=== PATIENT | female | born 1980 | race Caucasian/White ===

== ENCOUNTER → 2018-07-24 | Outpatient (CLI) | payer MEDICAID ==
[~2018-07-24] MED LIST: ALPR.5T PO; BUTA1TAB46 PO; CATHETER FLUSH 10 ML SYR IV PRN; CITA40TA19 PO; CPR500T PO; HOLD METFORMIN - RECEIVED CONTRAST 20 ML VIAL IV SCH; HYDR-757 PO; IBUP-30 PO; IBUP800T26 PO; IOHEXOL 350 MG/ML 100 ML (OMNIPAQUE 350) VIAL IV ONE; LEVO750T6 PO; METR500T PO; NAPR-243 PO; NITR-65 PO; NS 50 ML (IVPB) BAG IV ONE; ONDAN4ODT PO; SULF-222 PO; TRM50T PO
--- NOTE | 2018-07-24 19:10 | Diagnostic Imaging Report ---
PROCEDURE: CT abdomen and pelvis with contrast. TECHNIQUE: Multiple contiguous axial images were obtained through the abdomen and pelvis after administration of intravenous contrast. Auto Exposure Controls were utilized during the CT exam to meet ALARA standards for radiation dose reduction. DATE: July 24, 2018. COMPARISON: CT chest, abdomen and pelvis, May 26, 2013. INDICATION: 37-year-old female, right upper quadrant abdominal pain for one year. FINDINGS: There is minimal dependent atelectasis in the lower lobes. The heart is not enlarged. There is no identified pericardial effusion. The liver is normal in size and contour. There is an elongated left lobe of the liver which is a normal variant appearance. There is no identified liver lesion. The main, right and left portal veins are patent. The patient is status post cholecystectomy. There is no intrahepatic or extrahepatic bile duct dilation. The main pancreatic duct is not abnormally dilated. Unremarkable appearance of the pancreatic parenchyma. The spleen is normal in size. The adrenal glands are unremarkable. There is a 5 mm low-attenuation right renal lesion on delayed axial image 45, too small to characterize. Urinary collecting systems are not distended. There is no identified renal or ureteral stone. The urinary bladder is grossly unremarkable in appearance. The uterus is not seen and may be surgically absent. There are surgical clips in the right lower quadrant. The appendix is not well seen. There are no secondary findings to suggest acute appendicitis. There is no free intraperitoneal air. There is no drainable fluid collection. There is no free pelvic fluid. There is no identified abnormally enlarged lymph node in the abdomen or pelvis which meets CT size criteria for adenopathy. There is no identified acute bony abnormality. IMPRESSION: CT abdomen and pelvis: No identified acute abnormality in the abdomen or pelvis. Dictated by: Dictated on workstation # [id number]
== END ==
LOC: RAD FS 15:12
PROVIDERS: ATTEND Physician Assistant
DX: R10.11 Right upper quadrant pain (principal); Z90.49 Acquired absence of other specified parts of digestive tract
CPT/HCPCS: 74177

== ENCOUNTER 2018-08-09 13:50 | Emergency (ER) | payer MEDICAID ==
[~2018-08-09] VITALS: Ht 162.6 cm; Wt 68.0 kg
[~2018-08-09 13:50] MED LIST changes: -CATHETER FLUSH 10 ML SYR IV PRN; -HOLD METFORMIN - RECEIVED CONTRAST 20 ML VIAL IV SCH; -IOHEXOL 350 MG/ML 100 ML (OMNIPAQUE 350) VIAL IV ONE; -NS 50 ML (IVPB) BAG IV ONE
--- OUTSIDE RECORDS SUMMARY | 2018-08-09 13:55 | XMS REPORT | Continuity of Care Document ---
Author Author [facility] Organization [facility] Address Unknown Phone Unavailable Care Team Providers Care Supervisor Central Supply Name Role Phone NO, LOCAL PHYSICIAN PP Unavailable Insurance Providers Payer Name Policy Number Subscriber Name Relationship Unknown Moon Buckner Advance Directives Directive Response Recorded Date Advance Directives N 09/21/12 6:09pm Problems No Known Problems or Medical conditions. Social History History Response Recorded Date/Time Alcohol Use Denies Use 09/21/12 6:09pm Recreational Drug Use N 09/21/12 6:09pm Allergies, Adverse Reactions, Alerts Allergen Type Severity Reaction Last Updated acetaminophen Allergy 09/21/12 DEPROVERA Allergy 09/21/12 Medications Medication Dose Units Route Sig Qty Days Ciprofloxacin (Cipro) 1 Tab PO BID 5 Citalopram Hydrobromide (Celexa) 1 Each PO DAILY Alprazolam (Xanax) 1 Tab PO QID PRN Response Recorded Date/Time Status not known Unknown Results No Known Relevant Diagnostic Tests, Laboratory Data and/or Discharge Summary. Encounters Encounter Location Date/Time Registered Emergency Room [facility] 09/21/12 5:49pm
--- OUTSIDE RECORDS SUMMARY | 2018-08-09 13:55 | XMS REPORT ---
Author Author Migration, Doctor Organization [facility] Address Unknown Phone Unavailable Care Team Providers Care Devops Engineer Name Role Phone Migration, Doctor Unavailable Unavailable PROBLEMS Type Condition ICD9-CM Code XMC53-MF Code Onset Dates Condition Status SNOMED Code Problem Special screening for malignant neoplasms, vagina V76.47 Active 583182152 Problem Unspecified breast screening V76.10 Active 552162725 Problem Moderate episode of recurrent major depressive disorder F33.1 Active 526884266 Problem Chronic obstructive pulmonary disease with acute lower respiratory infection J44.0 Active [id number] Problem Screening examination for venereal disease V74.5 Active 185669801 Problem Other abnormal blood chemistry 790.6 Active 072136848 Problem Renal and perinephric abscess 590.2 Active 812316508 Problem Acute pyelonephritis without lesion of renal medullary necrosis 590.10 Active 196377393 ALLERGIES No Information ENCOUNTERS Encounter Location Date Diagnosis [address] [address] Jun, Moderate episode of recurrent major depressive disorder F33.[address] [address] Jun, Right upper quadrant abdominal pain R10.11 [place] [id number] [place] [address] Jun, Moderate episode of recurrent major depressive disorder F33.[address] [address] May, Moderate episode of recurrent major depressive disorder F33.1 ; Acute bronchitis, unspecified J20.9 and Chronic obstructive pulmonary disease with acute lower respiratory infection J44.0 [facility] [address] [id number] [address] Jul, [facility] [address] [id number], [place] [address] Jul, [facility] [place] [facility] [address] [id number] [place] [address] Nov, [facility] [place] [facility] [address] [id number] [place] [address] Nov, [facility] [place] [facility] [address] [id number] [place] [address] Oct, 2013 [facility] [place] [facility] [address] [id number] [place] [address] Oct, 2013 [facility] [place] [facility] [address] [id number] [place] [address] Jan, [facility] [place] [facility] [address] [id number] [place] [address] Jan, [facility] [place] [facility] [address] [id number] [place] [address] Jan, [facility] [place] [facility] [address] [id number] [place] [address] Jan, [facility] [place] [facility] [address] [id number] [place] [address] Jan, [facility] [place] [facility] [address] [id number] [place] [address] Jan, [facility] [place] [facility] [address] [id number] [place] [address] Jan, [facility] [place] [facility] [address] [id number] [place] [address] Jan, [facility] [place] [facility] [address] [id number] [place] [address] Dec, [facility] [place] [facility] [address] [id number] [place] [address] Nov, [facility] [place] [facility] [address] [id number] [place] [address] Nov, [facility] [place] [facility] [address] [id number] [place] [address] Nov, [facility] [address] [facility] [id number] [place] [address] Nov, [facility] [address] [facility] [id number] [place] [address] Oct, IMMUNIZATIONS No Known Immunizations SOCIAL HISTORY Never Assessed REASON FOR VISIT EMR-[facility] PLAN OF CARE VITAL SIGNS MEDICATIONS Medication Instructions Dosage Frequency Start Date End Date Duration Status Flagyl 500 mg 1 tablet by Oral route 2 times per day for 7 days Jan Active Ibuprofen 200 mg Nov, Active RESULTS No Results PROCEDURES No Known procedures INSTRUCTIONS MEDICATIONS ADMINISTERED No Known Medications MEDICAL (GENERAL) HISTORY Type Description Date Medical History Anxiety Medical History Depression Medical History emphysema Medical History COPD Surgical History hysterectomy Surgical History appendectomy Surgical History cholecystectomy Surgical History kidney stones, removed, stents placed & removed Surgical History ectopic Hospitalization History surgeries Hospitalization History kidneys Hospitalization History kidney disease x2 weeks Rhine
--- OUTSIDE RECORDS SUMMARY | 2018-08-09 13:56 | XMS REPORT | Continuity of Care Document ---
Author Author [facility] Organization [facility] Address Unknown Phone Unavailable Care Team Providers Care Plastic Press Molder Name Role Phone NO, LOCAL PHYSICIAN PP Unavailable Insurance Providers Payer Name Policy Number Subscriber Name Relationship Self Pay Peter Buckner 01 Self / Same As Patient Advance Directives Directive Response Recorded Date Advance Directives N 11/26/12 11:45pm Health Care Power of Channeler Outsole N 11/26/12 11:45pm Organ Donor Y 11/26/12 11:45pm Problems No Known Problems or Medical conditions. Family History History Response Recorded Date/Time Hx Family Cancer Y UNCLE-BRAIN, TWO GRANDMOTHERS 11/26/12 11:45pm Hx Family Breast Cancer N 11/26/12 11: 45pm Hx Family Lung Cancer N 11/26/12 11:45pm Hx Family Colorectal Cancer N 11/26/12 11 :45pm Hx Family Cardiac Disorders Y UNCLE--HEART TRANSPLANT 11/26/12 11:45pm Hx Family Stroke N 11/26/12 11:45pm Hx Family Hypertension N 11/26/12 11: 45pm Hx Family Myocardial Infarction N 11:45pm Hx Family Cystic Fibrosis N 11/26/12 11: 45pm Social History History Response Recorded Date/Time Alcohol Use Denies Use 11/26/12 11:45pm Recreational Drug Use Y OCCASSIONAL MARIJUANA 11/26/12 11:45pm Recent Foreign Travel N 11/26/12 11:45pm Recent Infectious Disease Exposure N 11:45pm Hospitalization with Isolation Denies 07/09 2:14pm Sexually Transmitted Disease N 11/26/12 11:45pm HIV/AIDS N 11/26/12 11:45pm Allergies, Adverse Reactions, Alerts Allergen Type Severity Reaction Last Updated acetaminophen Allergy 11/27/12 DEPROVERA Allergy 09/21/12 oxycodone Adverse Reaction Intermediate 11/27/12 Medications Medication Dose Units Route Sig Qty Days Trimethoprim/Sulfamethoxazole (Bactrim Ds) 1 Tab PO BID Ibuprofen (Advil) 800 Mg PO BID PRN Trimethoprim/Sulfamethoxazole (Bactrim Ds) 1 Ea PO BID Metronidazole (Flagyl 500 Mg) 1 Each PO BID 7 Ciprofloxacin (Cipro) 1 Tab PO BID 5 Citalopram Hydrobromide (Celexa) 1 Each PO DAILY Alprazolam (Xanax) 1 Tab PO QID PRN Immunizations Name Given Type Date of Pneumonia Vaccine 11/28/12 H pneumococcal polysaccharide PPV23 11/28/12 A pneumococcal polysaccharide PPV23 11/28/12 A Response Recorded Date/Time Status not known Unknown Results Test Date Result Interp. Ref. Range Alanine Aminotransferase (ALT/SGPT) November 26, 2012 9:20pm 33 U/L N 30-65 Albumin November 26, 2012 9:20pm 3.5 G/DL N 3.4-5.0 Alkaline Phosphatase November 26, 2012 9:20pm 124 U/L N 50-136 Amylase Level November 05, 2012 7:50pm 35 U/ L N 25-115 Aspartate Amino Transf (AST/SGOT) November 26, 2012 9:20pm 29 U/L N 15-37 BUN/Creatinine Ratio November 26, 2012 9:20pm 16 - Band Neutrophils November 26, 2012 9:20pm 1 % - Basophils # (Auto) November 26, 2012 9:20pm 0.0 10^3/uL N 0.0-0.1 Basophils % (Manual) November 26, 2012 9:20pm 0 % - Basophils (%) (Auto) November 26, 2012 9:20pm 0 % N 0-10 Blood Urea Nitrogen November 26, 2012 9:20pm 18 MG/DL N 7-18 Calcium Level November 26, 2012 9:20pm 8.9 MG/DL N 8.5-10.1 Carbon Dioxide Level November 26, 2012 9:20pm 28 MMOL/L N 21-32 Chloride Level November 26, 2012 9:20pm 96 MMOL/L L 101-110 Creatinine November 26, 2012 9:20pm 1.1 MG/ DL N 0.6-1.3 Eosinophils # (Auto) November 26, 2012 9:20pm 0.0 10^3/uL N 0.0-0.3 Eosinophils % (Manual) November 26, 2012 9:20pm 0 % - Eosinophils (%) (Auto) November 26, 2012 9:20pm 0 % N 0-10 Glucose Level November 26, 2012 9:20pm 101 MG/DL N 74-106 Hematocrit November 26, 2012 9:20pm 43 % N 35-52 Hemoglobin November 26, 2012 9:20pm 14.8 G/ DL N 11.5-16.0 Lipase November 05, 2012 7:50pm 127 U/L N 73-393 Lymphocytes # (Auto) November 26, 2012 9:20pm 2.0 X 10^3 N 1.0-4.0 Lymphocytes % (Manual) November 26, 2012 9:20pm 24 % - Lymphocytes (%) (Auto) November 26, 2012 9:20pm 12 % N 12-44 Mean Corpuscular Hemoglobin November 26, 2012 9:20pm 31 PG N 25-34 Mean Corpuscular Hemoglobin Concent November 26, 2012 9:20pm 35 G/DL N 32-36 Mean Corpuscular Volume November 26, 2012 9:20pm 90 FL N 80-99 Mean Platelet Volume November 26, 2012 9:20pm 9.4 FL N 7.4-10.4 Monocytes # (Auto) November 26, 2012 9:20pm 2.0 X 10^3 H 0.0-1.0 Monocytes % (Manual) November 26, 2012 9:20pm 6 % - Monocytes (%) (Auto) November 26, 2012 9:20pm 12 % N 0-12 Neutrophils # (Auto) November 26, 2012 9:20pm 12.2 X 10^3 H 1.8-7.8 Neutrophils % (Manual) November 26, 2012 9:20pm 67 % - Neutrophils (%) (Auto) November 26, 2012 9:20pm 75 % N 42-75 Platelet Count November 26, 2012 9:20pm 187 10^3/uL N 130-400 Potassium Level November 26, 2012 9:20pm 4.1 MMOL/L N 3.6-5.0 Reactive Lymphocytes November 26, 2012 9:20pm 2 % - Red Blood Count November 26, 2012 9:20pm 4.76 10^6/uL N 4.35-5.85 Red Cell Distribution Width November 26, 2012 9:20pm 12.5 % N 10.0-14.5 Sodium Level November 26, 2012 9:20pm 132 MMOL/L L 135-145 Total Bilirubin November 26, 2012 9:20pm 0.4 MG/DL N 0.0-1.0 Total Protein November 26, 2012 9:20pm 8.1 G /DL N 6.4-8.2 Ur Tricyclic Antidepressants Screen November 05, 2012 6:17pm NEGATIVE - Urine Amphetamines Screen November 05, 2012 6:17pm NEGATIVE - Urine Bacteria November 26, 2012 9:02pm LARGE /HPF H - Urine Barbiturates Screen November 05, 2012 6:17pm NEGATIVE - Urine Benzodiazepines Screen November 05, 2012 6:17pm NEGATIVE - Urine Bilirubin November 26, 2012 9:02pm NEGATIVE - Urine Casts November 26, 2012 9:02pm NONE / LPF - Urine Clarity November 26, 2012 9:02pm VERY CLOUDY H - Urine Cocaine Screen November 05, 2012 6:17pm NEGATIVE - Urine Color November 26, 2012 9:02pm EDDIE H - Urine Crystals November 26, 2012 9:02pm NONE /LPF - Urine Culture Indicated November 26, 2012 9:02pm YES - Urine Glucose (UA) November 26, 2012 9:02pm NEGATIVE - Urine Ketones November 26, 2012 9:02pm NEGATIVE - Urine Leukocyte Esterase November 26, 2012 9:02pm 2+ H - Urine Methamphetamines Screen November 05, 2012 6:17pm NEGATIVE - Urine Mucus November 26, 2012 9:02pm NEGATIVE /LPF - Urine Nitrite November 26, 2012 9:02pm POSITIVE H - Urine Opiates Screen November 05, 2012 6:17pm POSITIVE H - Urine Phencyclidine Screen November 05, 2012 6:17pm NEGATIVE - Urine Propoxyphene Screen November 05, 2012 6:17pm NEGATIVE - Urine Protein November 26, 2012 9:02pm 3+ H - Urine RBC November 26, 2012 9:02pm 2-5 /HPF H - Urine Specific [place] November 26, 2012 9:02pm 1.025 H - Urine Squamous Epithelial Cells November 26, 2012 9:02pm 2-5 /HPF - Urine Urobilinogen November 26, 2012 9:02pm 1 MG/DL - Urine WBC November 26, 2012 9:02pm 50-100 / HPF H - Urine White Blood Cell Casts September 21, 2012 6:22pm /LPF - Urine pH November 26, 2012 9:02pm 5 - White Blood Count November 26, 2012 9:20pm 16.3 10^3/uL H 4.3-11.0 Estimat Glomerular Filtration Rate November 26, 2012 9:20pm 58 - Urine Oxycodone Screen November 05, 2012 6:17pm NEGATIVE - Blood Morphology Comment November 26, 2012 9:20pm NORMAL - Urine Methadone Screen November 05, 2012 6:17pm NEGATIVE - Urine Cannabinoids Screen November 05, 2012 6:17pm POSITIVE H - Urine Buprenorphine November 05, 2012 6:17pm NEGATIVE - Urine RBC (Auto) November 26, 2012 9:02pm 5+ H - Procedures Procedure Code Date Blood Culture 11/05/12 Urine Culture 11/05/12 Encounters Encounter Location Date/Time Discharged Inpatient [facility] 10:49pm Departed Emergency Room [facility] 02/08 5:53pm
--- OUTSIDE RECORDS SUMMARY | 2018-08-09 13:56 | XMS REPORT | Continuity of Care Document ---
Author Organization Unknown Address Unknown Allergies Active Description Code Type Severity Reaction Onset Reported/Identified Relationship to Patient Clinical Status Yes oxycodone oxycodone Moderate N/A 11/27/2012 Yes acetaminophen [id number] Drug Allergy Unknown N/A 07/24/2018 Yes DEPROVERA DEPROVERA Unknown N/A 07/24/2018 Medications There is no data. Problems Date Dx Coded Attending Type Code Diagnosis Diagnosed By 12/04/2012 590.10 PYELONEPHRITIS ACUTE 12/04/2012 590.2 KIDNEY STONES 12/04/2012 790.6 ABNORMAL BLOOD CHEMISTRY 12/04/2012 LULA SCRUGGS APRN A 590.10 PYELONEPHRITIS ACUTE 12/04/2012 LULA SCRUGGS APRN 590.2 KIDNEY STONES 12/04/2012 LULA SCRUGGS APRN A 790.6 ABNORMAL BLOOD CHEMISTRY 12/04/2012 590.10 PYELONEPHRITIS ACUTE 12/04/2012 590.2 KIDNEY STONES 12/04/2012 790.6 ABNORMAL BLOOD CHEMISTRY 01/26/2013 LULA SCRUGGS APRN A V74.5 STD SCREEN 01/26/2013 LULA SCRUGGS APRN A V76.10 BREAST CANCER SCREENING 01/26/2013 LULA SCRUGGS APRN V76.47 VAGINAL PAP SMEAR SCREENING 01/26/2013 V74.5 STD SCREEN 01/26/2013 V76.10 BREAST CANCER SCREENING 01/26/2013 V76.47 VAGINAL PAP SMEAR SCREENING 05/26/2013 KASEY COSME DO K Ot 599.0 URIN TRACT INFECTION NOS 05/26/2013 KASEY COSME DO Ot 724.2 LUMBAGO 05/26/2013 KASEY COSME DO K Ot 784.0 HEADACHE 05/26/2013 OMA COSME DOA K Ot 786.50 CHEST PAIN NOS 08/14/2013 MEG PONCE PHYSICS TECHNICAL OFFICER Ot 729.5 PAIN IN LIMB 08/14/2013 MEG PONCE APRN Ot 815.00 FX METACARPAL NOS-CLOSED 08/14/2013 MEG PONCE APRN Ot E000.8 OTHER EXTERNAL CAUSE STATUS 08/14/2013 MEG PONCE APRN Ot E849.0 ACCIDENT IN HOME 08/14/2013 MEG PONCE APRN Ot E958.8 SUICIDE/SELF-INJURY NEC 07/24/2018 RAMON MOYA Ot R10.11 RIGHT UPPER QUADRANT PAIN 07/24/2018 RAMON MOYA Ot Z90.49 ACQUIRED ABSENCE OF OTHER SPECIFIED PART 2018 RAMON MOYA Ot R10.11 RIGHT UPPER QUADRANT PAIN 2018 RAMON MOYA Ot Z90.49 ACQUIRED ABSENCE OF OTHER SPECIFIED PART 07/29/2018 RAMON MOYA Ot R10.11 RIGHT UPPER QUADRANT PAIN 07/29/2018 RAMON MOYA Ot Z90.49 ACQUIRED ABSENCE OF OTHER SPECIFIED PART Procedures Code Description [place] [address] SYPHILIS TEST 01/26/2013 62857 CULTURE UROGENITAL 01/26/2013 48918 GC/CHLAM PROBE (STATE) 01/26/2013 97600 PAP SMEAR 01/26/2013 Q0091 PAP SMEAR OBTAIN SMEAR 01/26/2013 03578 TRICHOMONAS (IN-HOUSE) 01/26/2013 Results There is no data. Encounters ACCT No. Visit Date/Time Discharge Status Pt. Type Provider Facility Loc./Unit Complaint [id number] 01/26/2013 15:34:00 01/26/2013 23:59:59 CLS Outpatient LULA SCRUGGS APRN [id number] 12/09/2013 12:24:00 Document Registration [id number] 12/04/2012 14:08:00 Document Registration [id number] 07/24/2018 15:12:00 07/24/2018 23:59:59 CLS Outpatient RAMON MOYA [facility] RAD FS RUQ ABD PAIN [id number] 08/14/2013 17:21:00 08/14/2013 18:03:00 DIS Emergency MEG PONCE APRN [facility] ER L HAND PAIN [id number] 05/26/2013 16:02:00 05/26/2013 19:34:00 DIS Emergency KASEY COSME DO [facility] ER CHEST PAIN; BACK PAIN [id number] 03/20/2013 08:39:00 03/20/2013 23:59:59 CLS Outpatient [id number] 11/26/2012 22:49:00 11/29/2012 13:20:00 DIS Inpatient [id number] 11/05/2012 17:53:00 11/05/2012 21:22:00 DIS Emergency [id number] 09/21/2012 17:49:00 09/21/2012 20:56:00 DIS Emergency [id number] 08/09/2018 13:51:00 ACT Emergency KASIE PLATT MD [facility] ER FS SOB, CHEST PAIN [id number] 07/24/2018 14:45:00 07/24/2018 23:59:59 [facility]
--- OUTSIDE RECORDS SUMMARY | 2018-08-09 13:56 | XMS REPORT | Continuity of Care Document ---
Author Author [facility] Organization [facility] Address Unknown Phone Unavailable Care Team Providers Care Sql Server Dba Developer Name Role Phone NO, LOCAL PHYSICIAN PP Unavailable Insurance Providers Payer Name Policy Number Subscriber Name Relationship Self Pay Moon Bucnker 01 Self / Same As Patient Advance Directives Directive Response Recorded Date Advance Directives N 11/05/12 6:04pm Problems No Known Problems or Medical conditions. Social History History Response Recorded Date/Time Alcohol Use Denies Use 11/05/12 6:04pm Recreational Drug Use Y POT 11/05/12 6: 04pm Allergies, Adverse Reactions, Alerts Allergen Type Severity Reaction Last Updated acetaminophen Allergy 09/21/12 DEPROVERA Allergy 09/21/12 Medications Medication Dose Units Route Sig Qty Days Ondansetron HCl (Zofran Oral Dissolve) 4 Mg PO Q4H 5 Tramadol HCl (Ultram) 50 Mg PO Q4-6HOURS PRN 20 Levofloxacin (Levaquin) 750 Mg PO DAILY 7 Metronidazole (Flagyl 500 Mg) 1 Each PO BID 7 Ciprofloxacin (Cipro) 1 Tab PO BID 5 Citalopram Hydrobromide (Celexa) 1 Each PO DAILY Alprazolam (Xanax) 1 Tab PO QID PRN Response Recorded Date/Time Status not known Unknown Results Test Date Result Interp. Ref. Range Urine Bacteria September 21, 2012 6:22pm TRACE /HPF - Urine Bilirubin September 21, 2012 6:22pm NEGATIVE - Urine Casts September 21, 2012 6:22pm NONE / LPF - Urine Clarity September 21, 2012 6:22pm CLEAR - Urine Color September 21, 2012 6:22pm YELLOW - Urine Crystals September 21, 2012 6:22pm NONE /LPF - Urine Culture Indicated September 21, 2012 6:22pm YES - Urine Glucose (UA) September 21, 2012 6:22pm NEGATIVE - Urine Ketones September 21, 2012 6:22pm NEGATIVE - Urine Leukocyte Esterase September 21, 2012 6:22pm TRACE H - Urine Mucus September 21, 2012 6:22pm SMALL / LPF H - Urine Nitrite September 21, 2012 6:22pm NEGATIVE - Urine Protein September 21, 2012 6:22pm NEGATIVE - Urine RBC September 21, 2012 6:22pm 0-2 /HPF - Urine Specific [place] September 21, 2012 6:22pm 1.030 H - Urine Squamous Epithelial Cells September 21, 2012 6:22pm 5-10 /HPF - Urine Urobilinogen September 21, 2012 6:22pm NORMAL MG/DL - Urine WBC September 21, 2012 6:22pm 5-10 /HPF H - Urine White Blood Cell Casts September 21, 2012 6:22pm /LPF - Urine pH September 21, 2012 6:22pm 5 - Urine RBC (Auto) September 21, 2012 6:22pm 1+ H - Procedures Procedure Code Date Urine Culture 09/21/12 Encounters Encounter Location Date/Time Registered Emergency Room [facility] 11/05/12 5:53pm Departed Emergency Room [facility] 5:49pm
--- NOTE | 2018-08-09 14:23 | Diagnostic Imaging Report ---
CLINICAL INDICATION: Patient sitting at a baseball game and suddenly had left rib pain and shortness of breath. EXAM: Chest x-ray PA and lateral views. COMPARISONS: None. FINDINGS: Lungs/pleura: Lungs are clear. There is no pneumothorax. There is no pleural effusion. Mediastinum: Unremarkable. Pulmonary vasculature: Unremarkable. Heart: Unremarkable. Bones/extrathoracic soft tissue: Unremarkable. IMPRESSION: There is no radiographic evidence of acute cardiopulmonary process. Dictated by: Dictated on workstation # [id number]
--- NOTE | 2018-08-09 14:24 | ED General ---
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 SHE WENT TO SIT IN THE CAR AND THE PAIN WENT AWAY BUT REPORTS IT SCARED HER. Nursing Sepsis Screen: No Definite Risk Source of Information: Patient Exam Limitations: No Limitations History of Present Illness Date Seen by Provider: Aug 09, 2018 Time Seen by Provider: 14:19 Initial Comments Patient was sitting down when she suddenly experienced severe sharp pain in her left mid ribs. Pain doubled her over and was associated with shortness of breath. She denies any trauma. Pain is gone now. She denies fevers chills or cough. She does smoke. Allergies and Home Medications Allergies Coded Allergies: acetaminophen (Verified Allergy, Unknown, 07/24/18) PT DENIES ALLERGY, CITING, "I CAN TAKE LORCET, I CANNOT TAKE PERCOSET. Uncoded Allergies: DEPROVERA (Allergy, Unknown, 07/24/18) oxycodone (Adverse Reaction, Intermediate, 11/27/12) pt states, "i'm not really allergic to tylenol, i am allergic to percoset. WHEN I TOOK PERCOSET I BECAME VERY ANXIOUS, AND NERVOUS, WAS CLIMBING THE HERNANDEZ, BUT I CAN TAKE LORCET WITH NO PROBLEM, SO IT'S NOT TYLENOL. IT'S OXYCODONE THAT I AM ALLERGIC TO. Home Medications Hydrocodone Bit/Acetaminophen 1 Each Tablet, 1 EA PO Q6H PRN for MILD PAIN Prescribed by: MEG PONCE on 08/14/13 1721 Ibuprofen 800 Mg Tablet, 800 MG PO q8h PRN for PAIN, (Reported) Review of Systems Review of Systems Constitutional: no symptoms reported Respiratory: short of breath Cardiovascular: chest pain Musculoskeletal: no symptoms reported Skin: no symptoms reported All Other Systems Reviewed Negative Unless Noted: Yes Past Kazjesx-Uevtxr-Ibdwog Hx Patient Social History Alcohol Use: Denies Use Recreational Drug Use: No Recent Foreign Travel: No (N) Contact w/Someone Who Travel: No Recent Infectious Disease Expo: No Physical Abuse: No Sexual Abuse: No Mistreated: No Fear: No Immunizations Up To Date Date of Pneumonia Vaccine: Nov 28, 2012 Seasonal Allergies Seasonal Allergies: No 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 oz. 68.509613em; BMI Method:Stated General Appearance: WD/WN, Anxious HEENT: PERRL/EOMI, Pharynx Normal Neck: Supple Respiratory: Chest Non Tender (no crepitus), Lungs Clear, Normal Breath Sounds Cardiovascular: Regular Rate, Rhythm, No Edema Gastrointestinal: Soft Back: Normal Inspection Neurologic/Psychiatric: Alert, No Motor/Sensory Deficits, Normal Mood/Affect Skin: Normal Color, Warm/Dry Progress/Results/Core Measures Suspected Sepsis Recent Fever Within 48 Hours: No Infection Criteria Present: None New/Unexplained Altered Menta: No Sepsis Screen: No Definite Risk SIRS Temperature:97.8 Pulse: 82 Respiratory Rate: 18 Blood Pressure 121 /75 Mean: 90 Results/Orders My Orders Orders - KASIE PLATT MD Ekg Tracing (08/09/18 14:06) Chest Pa/Lat (2 View) (08/09/18 14:06) Vital Signs/I&O 08/09/18 13:50 Temp 97.8 Pulse 82 Resp 18 B/P (MAP) 121/75 (90) O2 Delivery Room Air Capillary Refill : Less Than 3 Seconds Blood Pressure Mean: 90 Progress Note : Time: 14:29 Progress Note Symptoms were brief. Now resolved. EKG normal chest x-ray normal. Well's criteria and PERC rule 0. Observe here for an hour. discharge if stable. ECG Initial ECG Impression Date: Aug 09, 2018 Initial ECG Impression Time: 14:21 Initial ECG Rate: 89 Initial ECG Intervals: Normal Initial ECG Intervals no ischemia or signs of pericarditis Initial ECG Impression: Normal Diagnostic Imaging Diagonstic Imaging: Xray Plain Films/CT/US/NM/MRI: chest Comments nad Departure Impression Primary Impression: Chest pain not due to acute coronary syndrome Disposition: 01 HOME, SELF-CARE Condition: Stable Departure-Patient Inst. Referrals: ELODIA CELAYA MD (PCP/Family) Primary Care Physician Patient Instructions: Pleuritic Chest Pain (DC) Add. Discharge Instructions: Rest. Ibuprofen for pain. Stop smoking. Seek medical attention if pain recurs or is severe and persistent. All discharge instructions reviewed with patient and/or family. Voiced understanding. KASIE PLATT MD Aug 09, 2018 14:23
[2018-08-09 15:05] VITALS: BP 101/68
== END 2018-08-09 15:06 | disposition home or self-care (01) ==
LOC: EDUNIT# 13:50 → ER FS 13:51
DX: R07.9 Chest pain, unspecified (principal); J45.909 Unspecified asthma, uncomplicated; F41.9 Anxiety disorder, unspecified; F32.9 Major depressive disorder, single episode, unspecified; Z87.19 Personal history of other diseases of the digestive system; Z87.440 Personal history of urinary (tract) infections; Z87.442 Personal history of urinary calculi; Z87.448 Personal history of other diseases of urinary system; Z88.6 Allergy status to analgesic agent; Z88.7 Allergy status to serum and vaccine; Z88.5 Allergy status to narcotic agent; Z88.8 Allergy status to other drugs, medicaments and biological substances; Z90.710 Acquired absence of both cervix and uterus
CPT/HCPCS: 71046

== ENCOUNTER → 2018-12-05 | Outpatient (CLI) | payer MEDICAID ==
--- NOTE | 2018-12-05 09:30 | Diagnostic Imaging Report ---
Indication: Chronic back pain radiating into the right leg. Time of exam: 9:22 AM 3 views of the lumbar spine show normal curvature and alignment. Vertebral body heights and disc spaces are well-maintained. No fracture or subluxation is seen. Impression: No acute bony abnormality is detected. Dictated by: Dictated on workstation # [id number]
== END ==
LOC: RAD FS 09:12
PROVIDERS: ATTEND Family Medicine
DX: M54.41 Lumbago with sciatica, right side (principal)
CPT/HCPCS: 72100

== ENCOUNTER 2019-06-18 12:05 | Emergency (ER) | payer BC, MEDICAID ==
[~2019-06-18] VITALS: Ht 162.5 cm; Wt 61.3 kg
[2019-06-18] MEDS ORDERED: LORazepam 0.5 MG (ATIVAN) TABLET PO STA (12:40)
[2019-06-18] MEDS ORDERED: NS IV 1000 ML 1,000 ML IV SCH (12:40)
[2019-06-18] MEDS ORDERED: FAMOTIDINE 20 MG (PEPCID) TABLET PO ONE (12:45)
[2019-06-18] MEDS ORDERED: MECLIZINE 25 MG (ANTIVERT) TAB PO ONE (12:45)
[2019-06-18 13:27] LABS: BASOPHILS % (AUTO) 0 % (0-10); EOSINOPHILS % (AUTO) 1 % (0-10); HEMATOCRIT 43 % (35-52); HEMOGLOBIN 15.1 G/DL (11.5-16.0); LYMPHOCYTES % (AUTO) 23 % (12-44); MEAN CORPUSCULAR HEMOGLOBIN 31 PG (25-34); MEAN CORPUSCULAR HGB CONC 35 G/DL (32-36); MEAN CORPUSCULAR VOLUME 90 FL (80-99); MONOCYTES % (AUTO) 6 % (0-12); NEUTROPHILS % (AUTO) 70 % (42-75); PLATELET COUNT 370 10^3/uL (130-400); RED CELL DISTRIBUTION WIDTH 11.9 % (10.0-14.5); WHITE BLOOD COUNT 11.1 10^3/uL (4.3-11.0)
[2019-06-18 13:28] LABS: EOSINOPHILS # (AUTO) 0.1 10^3/uL (0.0-0.3); LYMPHOCYTES # (AUTO) 2.3 X 10^3 (1.0-4.0); MONOCYTES # (AUTO) 0.6 X 10^3 (0.0-1.0); NEUTROPHILS # (AUTO) 7.7 X 10^3 (1.8-7.8)
--- NOTE | 2019-06-18 13:28 | ED General ---
General Chief Complaint: Abdominal/GI Problems Stated Complaint: VOMITING,DIZZINESS Nursing Triage Note: Patient presents to the ED with c/o vomiting, shakiness, and head spinning. She states that her symptoms began within the last hour and she has vomited x3. Nursing Sepsis Screen: No Definite Risk History of Present Illness Date Seen by Provider: Jun 18, 2019 Time Seen by Provider: 12:23 Initial Comments The patient is a 38-year-old female with a history of tobacco abuse and who is otherwise healthy. 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 Her sister is here with her and alludes to some new life stress which the patient does not elaborate on. Patient reported to me initially that it felt like her head was spinning but when I clarify she states that she just feels very lightheaded like she will pass out. She denies any sara vertigo. Patient states she was feeling well before the onset of symptoms. Associated mild epigastric discomfort with onset after the vomiting episodes. She denies fevers, hematemesis, hematochezia, melena, headache, focal weakness, focal numbness, neck stiffness/pain/meningismus, vision changes, shortness of breath or chest pain, flank pain, back pain, dysuria or hematuria, changes in bowel habits. Patient is alert and oriented and appropriately interactive and in no acute distress upon initial evaluation in the emergency department. Vital signs are appropriate here. Allergies and Home Medications Allergies Coded Allergies: acetaminophen (Verified Allergy, Unknown, 07/24/18) PT DENIES ALLERGY, CITING, "I CAN TAKE LORCET, I CANNOT TAKE PERCOSET. Uncoded Allergies: DEPROVERA (Allergy, Unknown, 07/24/18) oxycodone (Adverse Reaction, Intermediate, 11/27/12) pt states, "i'm not really allergic to tylenol, i am allergic to percoset. WHEN I TOOK PERCOSET I BECAME VERY ANXIOUS, AND NERVOUS, WAS CLIMBING THE HERNANDE[place], BUT I CAN TAKE LORCET WITH NO PROBLEM, SO IT'S NOT TYLENOL. IT'S OXYCODONE THAT I AM ALLERGIC TO. Home Medications Hydrocodone Bit/Acetaminophen 1 Each Tablet, 1 EA PO Q6H PRN for MILD PAIN Prescribed by: MEG PONCE on 08/14/13 2475 Ibuprofen 800 Mg Tablet, 800 MG PO q8h PRN for PAIN, (Reported) Patient Home Medication List Home Medication List Reviewed: Yes Review of Systems Review of Systems Constitutional: see HPI All Other Systems Reviewed Negative Unless Noted: Yes (Negative excepted noted.) Past Txkdtge-Qpqunu-Opntma Hx Past Med/Social Hx: Reviewed Nursing Past Med/Soc Hx Patient Social History Alcohol Use: Denies Use Recreational Drug Use: Yes Drug of Choice: Marijuana Smoking Status: Current Everyday Smoker 2nd Hand Smoke Exposure: No Recent Foreign Travel: No Contact w/Someone Who Travel: No Recent Infectious Disease Expo: No Physical Abuse: No Sexual Abuse: No Mistreated: No Fear: No Immunizations Up To Date Date of Pneumonia Vaccine: Nov 28, 2012 Seasonal Allergies Seasonal Allergies: No 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 oz. 68.449535fq; 23.00 BMI Method:Stated General Appearance: No Apparent Distress Comments This is a younger female appearing nontoxic and in no acute distress. She appears anxious. Head is normocephalic and atraumatic. Neck is supple and nontender. Oropharynx is moist. Lungs are clear to auscultation at all stations. There is a normal S1 and S2 without rubs or gallops and capillary refill is appropriate, less than 2 seconds globally. Abdomen is soft, nontender and with very mild epigastric tenderness to palpation without rebound or guarding. No right-sided or lower abdominal tenderness to palpation. Skin is warm and dry without cyanosis, clubbing or edema. Psychiatrically, the patient demonstrates appropriate mood and affect and is alert. Neurologically, cranial nerves II through XII are intact and there are no lateralizing deficits noted. Speech is normal. Language is normal. Coordination is normal. There is no dysmetria with finger to nose bilaterally. Strength is 5 out of 5 in all joints of bilateral upper and lower extremities. Sensation is intact to light touch in bilateral upper and lower extremities. Ambulation testing is deferred. Patient is alert and oriented 4. Progress/Results/Core Measures Suspected Sepsis Recent Fever Within 48 Hours: No Infection Criteria Present: Suspected New Infection New/Unexplained Altered Menta: No Sepsis Screen: No Definite Risk SIRS Temperature: Pulse: 112 Respiratory Rate: 20 Laboratory Tests 06/18/19 13:00: White Blood Count 11.1H Blood Pressure 125 /80 Mean: 95 Laboratory Tests 06/18/19 13:00: Creatinine 0.67, Platelet Count 370, Total Bilirubin 0.3 Results/Orders Lab Results Laboratory Tests Test 06/18/19 13:00 Range/Units White Blood Count 11.1 H 4.3-11.0 10^3/uL Red Blood Count 4.83 4.35-5.85 10^6/uL Hemoglobin 15.1 11.5-16.0 G/DL Hematocrit 43 35-52 % Mean Corpuscular Volume 90 80-99 FL Mean Corpuscular Hemoglobin 31 25-34 PG Mean Corpuscular Hemoglobin Concent 35 32-36 G/DL Red Cell Distribution Width 11.9 10.0-14.5 % Platelet Count 370 130-400 10^3/uL Mean Platelet Volume 9.0 7.4-10.4 FL Neutrophils (%) (Auto) 70 42-75 % Lymphocytes (%) (Auto) 23 12-44 % Monocytes (%) (Auto) 6 0-12 % Eosinophils (%) (Auto) 1 0-10 % Basophils (%) (Auto) 0 0-10 % Neutrophils # (Auto) 7.7 1.8-7.8 X 10^3 Lymphocytes # (Auto) 2.3 1.0-4.0 X 10^3 Monocytes # (Auto) 0.6 0.0-1.0 X 10^3 Eosinophils # (Auto) 0.1 0.0-0.3 10^3/uL Basophils # (Auto) 0.0 0.0-0.1 10^3/uL Sodium Level 139 135-145 MMOL/L Potassium Level 4.4 3.6-5.0 MMOL/L Chloride Level 101 98-107 MMOL/L Carbon Dioxide Level 26 21-32 MMOL/L Anion Gap 12 5-14 MMOL/L Blood Urea Nitrogen 12 7-18 MG/DL Creatinine 0.67 0.60-1.30 MG/DL Estimat Glomerular Filtration Rate > 60 BUN/Creatinine Ratio 18 Glucose Level 100 70-105 MG/DL Calcium Level 9.7 8.5-10.1 MG/DL Corrected Calcium 8.5-10.1 MG/DL Total Bilirubin 0.3 0.1-1.0 MG/DL Aspartate Amino Transf (AST/SGOT) 23 5-34 U/L Alanine Aminotransferase (ALT/SGPT) 19 0-55 U/L Alkaline Phosphatase 83 40-136 U/L Troponin I < 0.30 <0.30 NG/ML Total Protein 7.4 6.4-8.2 GM/DL Albumin 4.6 H 3.2-4.5 GM/DL Lipase 30 8-78 U/L My Orders Orders - BALWINDER MORELAND MD Cbc With Automated Diff (06/18/19 12:40) Comprehensive Metabolic Panel (06/18/19 12:40) Troponin I Fs (06/18/19 12:40) Ekg Tracing (06/18/19 12:40) Chest 1 View Ap/Pa Only (06/18/19 12:40) Ua Culture If Indicated (06/18/19 12:40) Hcg,Qualitative Urine (06/18/19 12:40) Ed Iv/Invasive Line Start (06/18/19 12:40) Ns Iv 1000 Ml (Sodium Chloride 0.9%) (06/18/19 12:40) Lorazepam Tablet (Ativan Tablet) (06/18/19 12:40) Famotidine Tablet (Pepcid Tablet) (06/18/19 12:45) Meclizine Tablet (Antivert Tablet) (06/18/19 12:45) Lipase (06/18/19 12:50) Acetaminophen Tablet/Caplet (Tylenol T (06/18/19 13:45) Medications Given in ED Current Medications Medications Dose Ordered Sig/Jorge Route Start Time Stop Time Status Last Admin Dose Admin Acetaminophen 975 mg ONCE ONCE PO 06/18/19 13:45 06/18/19 13:46 DC 06/18/19 13:54 975 MG Famotidine 20 mg ONCE ONCE PO 06/18/19 12:45 06/18/19 12:46 DC 06/18/19 13:09 20 MG Meclizine HCl 25 mg ONCE ONCE PO 06/18/19 12:45 06/18/19 12:46 DC 06/18/19 13:09 25 MG Vital Signs/I&O 06/18/19 12:29 Temp 37.1 Pulse 112 Resp 20 B/P (MAP) 125/80 (95) Pulse Ox 95 O2 Delivery Room Air Capillary Refill : Less Than 3 Seconds Blood Pressure Mean: 95 Progress Note : Time: 13:29 Progress Note Vital signs and clinical examination generally reassuring. Well-appearing female who presents for evaluation of shakiness, tingling of bilateral hands, nausea with 2 episodes of nonbloody vomiting and lightheadedness, all with onset after receiving what was apparently a troubling phone call from her children's school. Will place IV and give IV fluids and medication for nausea, anxiety and discomfort as noted (patient is not actually allergic to APAP) and will then reevaluate. If symptoms improve and workup is reassuring, plan will be for discharge home with medication for symptomatically management and referral for very close follow-up with primary care. Patient and her sister understand and agree with this plan of care. Update 1400: Large workup as above is without evidence of acute process. Patient is status post hysterectomy so no testing obtained. Patient feels much, much better upon reassessment and states that all of her presenting symptoms are resolved. She feels well and would like to go home. No evidence of an emergency medical condition requiring further testing or treatment at this time. We will proceed with discharge home. Patient understands that if she feels worse is that of better or develops other new symptoms of concern that she should return to the emergency department immediately for reevaluation. Otherwise she is to follow up with her primary doctor in the next 2-4 days. All questions are answered. ECG Comment Sinus rhythm, rate 90, no acute ST elevation or depression, NH 134, QRS 77, QTC 440, EP interpretation. Diagnostic Imaging Comments Date of Exam:06/18/19 CHEST 1 VIEW AP/PA ONLY Indication: Vomiting x1 hour Portable chest 1:35 PM Heart size and pulmonary vascularity are normal. Lungs are clear. There are no effusions or pneumothoraces. IMPRESSION: Negative chest Dictated by: Dictated on workstation # [id number] Departure Impression Primary Impression: Lightheadedness Additional Impressions: Acute epigastric pain Vomiting Qualified Codes: R11.2 - Nausea with vomiting, unspecified Disposition: HOME, SELF-CARE Condition: Improved Departure-Patient Inst. Referrals: ELODIA CELAYA MD (PCP/Family) Primary Care Physician Add. Discharge Instructions: Please follow up with your primary physician in the next 2-4 days as discussed for a reevaluation of your symptoms. Drink plenty of fluids and get plenty of rest. Use the medication as prescribed for nausea. Return to the emergency department right away with worsening symptoms or other new concerns. Scripts Ondansetron (Ondansetron Odt) 4 Mg Tab.rapdis 4 MG PO Q8H for na, #10 TAB Prov: BALWINDER MORELAND MD 06/18/19 Work/School Note: Family Work Note Patient Received Medical Care In the Emergency Department On: Jun 18, 2019 Patient Will Be Able to Return to Work/School On: Jun 19, 2019 Patient Restrictions: None BALWINDER MORELAND MD Jun 18, 2019 13:28
--- NOTE | 2019-06-18 13:44 | Diagnostic Imaging Report ---
Indication: Vomiting x1 hour Portable chest 1:35 PM Heart size and pulmonary vascularity are normal. Lungs are clear. There are no effusions or pneumothoraces. IMPRESSION: Negative chest Dictated by: Dictated on workstation # [id number]
[2019-06-18] MEDS ORDERED: ACETAMINOPHEN 325 MG TABLET PO ONE (13:45)
[2019-06-18 13:54] LABS: BUN/CREATININE RATIO 18; CARBON DIOXIDE 26 MMOL/L (21-32); CHLORIDE 101 MMOL/L (98-107); CREATININE SERUM 0.67 MG/DL (0.60-1.30); GFR ESTIMATED > 60; POTASSIUM 4.4 MMOL/L (3.6-5.0); SODIUM 139 MMOL/L (135-145)
[2019-06-18 13:55] LABS: ALANINE AMINOTRANSFERASE 19 U/L (0-55); ALBUMIN 4.6 GM/DL (3.2-4.5); ALKALINE PHOSPHATASE 83 U/L (40-136); BILIRUBIN,TOTAL 0.3 MG/DL (0.1-1.0); CALCIUM 9.7 MG/DL (8.5-10.1); GLUCOSE 100 MG/DL (70-105); LIPASE 30 U/L (8-78); TOTAL PROTEIN 7.4 GM/DL (6.4-8.2)
[2019-06-18] MEDS ORDERED: ONDA4TAB11 PO (14:06)
[2019-06-18 14:09] VITALS: BP 115/75
== END 2019-06-18 14:09 | disposition home or self-care (01) ==
LOC: EDUNIT# 12:05 → ER FS 12:07
DX: R42 Dizziness and giddiness (principal); R10.13 Epigastric pain; R11.2 Nausea with vomiting, unspecified; F17.200 Nicotine dependence, unspecified, uncomplicated; Z88.6 Allergy status to analgesic agent; Z88.8 Allergy status to other drugs, medicaments and biological substances; Z87.442 Personal history of urinary calculi
CPT/HCPCS: 36415; 71045; 80053; 83690; 84484; 85025; 93005

== ENCOUNTER 2021-01-07 11:47 | Emergency (ER) | payer SELFPAY ==
[~2021-01-07 11:47] MED LIST changes: +ONDA4TAB11 PO
[2021-01-07 11:55] VITALS: BP 113/81
[2021-01-07] MEDS ORDERED: KETOROLAC 60 MG/2 ML VIAL IM STA (12:03)
--- NOTE | 2021-01-07 12:03 | ED General ---
General Stated Complaint: RT LUNG PAIN Source of Information: Patient History of Present Illness Date Seen by Provider: Jan 07, 2021 Time Seen by Provider: 11:51 Initial Comments 40-year-old female presenting with complaints of pain on the right side of her chest. This morning she had rolled over in bed and it woke her up with pain in her chest. She has been at work all day and has not taken anything for pain. The pain is worse when she takes a deep breath. She denies any fall or injury to her chest. She has pain that goes straight through to her back when she takes a deep breath. She denies any increase in her cough from her baseline. She has no shortness of breath but is breathing more shallow because of the rib and chest pain when breathing deep. She denies any fever or chills. Timing/Duration: 4-6 Hours Severity: Severe Modifying Factors: worse with Movement (And deep breaths) Associated Systoms: Chest Pain (Right-sided); No Cough (No more than her baseline), No Diaphoresis, No Fever/Chills; Headaches (Chronic migraines and no different than usual); No Loss of Appetite, No Malaise, No Nausea/Vomiting, No Rash, No Seizure, No Shortness of Air, No Syncope, No Weakness Allergies and Home Medications Allergies Coded Allergies: acetaminophen (Verified Allergy, Unknown, 07/24/18) PT DENIES ALLERGY, CITING, "I CAN TAKE LORCET, I CANNOT TAKE PERCOSET. Uncoded Allergies: DEPROVERA (Allergy, Unknown, 07/24/18) oxycodone (Adverse Reaction, Intermediate, 11/27/12) pt states, "i'm not really allergic to tylenol, i am allergic to percoset. WHEN I TOOK PERCOSET I BECAME VERY ANXIOUS, AND NERVOUS, WAS CLIMBING THE HERNANDEZ, BUT I CAN TAKE LORCET WITH NO PROBLEM, SO IT'S NOT TYLENOL. IT'S OXYCODONE THAT I AM ALLERGIC TO. Patient Home Medication List Home Medication List Reviewed: Yes Cyclobenzaprine HCl (Cyclobenzaprine HCl) 10 Mg Tablet, 10 MG PO Q8H PRN for SPASMS Prescribed by: KARIS CLARK on 01/07/21 1327 Discontinued Medications Hydrocodone Bit/Acetaminophen ([place] 5-325 Tablet) 1 Each Tablet, 1 EA PO Q6H PRN for MILD PAIN Discontinued Reason: Referral/FU Appt-Addtl Prescribed by: MEG PONCE on 08/14/13 1737 Last Action: Discontinued Ibuprofen (Ibuprofen) 800 Mg Tablet, 800 MG PO q8h PRN for PAIN, (Reported) Discontinued Reason: Referral/FU Appt-Addtl Entered as Reported by: ОЛЕГ POLANCO on 08/14/13 1728 Last Action: Discontinued Ondansetron (Ondansetron Odt) 4 Mg Tab.rapdis, 4 MG PO Q8H Discontinued Reason: Referral/FU Appt-Addtl Prescribed by: BALWINDER MORELAND on 06/18/19 1406 Last Action: Discontinued Review of Systems Review of Systems Constitutional: No chills, No fever EENTM: no symptoms reported Respiratory: see HPI Cardiovascular: see HPI Gastrointestinal: No abdominal pain, No nausea, No vomiting Genitourinary: no symptoms reported Musculoskeletal: no symptoms reported Skin: No rash Psychiatric/Neurological: See HPI Past Urzxcjh-Vsukpr-Zdlhvi Hx Seasonal Allergies Seasonal Allergies: No Past Medical History Surgeries: Yes Respiratory: Yes (ASTHMA A CHILD) Asthma, COPD Cardiac: Yes Palpitations Neurological: Yes Headaches /Migraines Female 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 Sexually Transmitted Disease: No HIV/AIDS: No Genitourinary: Yes Bladder Infection, Kidney Stones, UTI-Chronic Gastrointestinal: Yes Chronic Diarrhea, Gall Bladder Disease Musculoskeletal: Yes (CHRONIC BILATERAL HIP PAIN ) Chronic Back Pain Endocrine: No HEENT: No Cancer: Yes Cervical, Uterine Psychosocial: Yes (STATES HAS APPROX 2 PANIC ATTACKS PER MONTH) Anxiety, Depression Integumentary: No Blood Disorders: Yes (CHRONIC ANEMIA, PER PATIENT) Adverse Reaction/Blood Tranf: No Family Medical History No Pertinent Family Hx Physical Exam Vital Signs Vital Signs - First Documented 01/07/21 11:55 Temp 36.3 Pulse 91 Resp 18 B/P (MAP) 113/81 (92) Pulse Ox 98 O2 Delivery Room Air Capillary Refill : Height, Weight, BMI Height: 5'4.00" Weight: 150lbs. oz. 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 Obtain x-rays of the ribs and chest to evaluate for rib fracture or pneumonia or pneumothorax or pleural effusion. Oxygen saturation is 98% on room air. Progress Note #2: Progress Note On recheck pt was having slight improvement in pain. Reviewed with her the films did not show any acute infection, pneumothorax, fluid collection or mass. Will try treating with nsaids and muscle relaxer for possible pulled muscle and pleurisy. counseled on results and plan. Diagnostic Imaging Diagonstic Imaging: Xray Plain Films/CT/US/NM/MRI: chest (With ribs) Comments [facility], [place] NAME: PETER MORALES Barbie [facility] REC#: [id number] PT STATUS: DEP ER : 1980 PHYSICIAN: KARIS CLARK MD ADMIT DATE: 01/07/21/ER FS Signed Date of Exam:01/07/21 RIBS/UNILATERAL WITH CHEST INDICATION: Right-sided chest pain COMPARISON: 08/09/2018 TECHNIQUE: 3 radiographs of the chest and right-sided ribs dated 01/07/2021. FINDINGS: The cardiac silhouette is within normal limits in size. No significant pulmonary vascular congestion. The lungs are clear. No pleural effusion. No pneumothorax. Surgical clips within right upper quadrant in the abdomen. No displaced or healing rib fracture. IMPRESSION: No displaced or healing rib fracture. No significant pleural effusion or pneumothorax. Dictated by: Dictated on workstation # [id number] Dict: 01/07/21 1309 Trans: 01/07/21 1425 CV [id number] Interpreted by: GUSTAVO LANGLEY MD Electronically signed by: GUSTAVO LANGLEY MD 01/07/21 1425 Reviewed: Reviewed by Me Departure Impression Primary Impression: Pleuritic chest pain Disposition: HOME, SELF-CARE Condition: Stable Departure-Patient Inst. Decision time for Depature: 13:27 Referrals: [facility] [place] (PCP/Family) Primary Care Physician Patient Instructions: Pleuritic Chest Pain ED Add. Discharge Instructions: Take Ibuprofen up to 800 mg every 8 hours as needed for pain and inflammation. Take the Cyclobenzaprine (Flexeril) 10 mg up to every 8 hours as needed for spasm and pain in right chest. Stay well hydrated and get plenty of rest. Follow up with clinic or return if not seeing improvement by Saturday or Saturday or if you have worsening symptoms. Scripts Cyclobenzaprine HCl (Cyclobenzaprine HCl) 10 Mg Tablet 10 MG PO Q8H PRN for SPASMS for 10 Days, #30 TAB 0 Refills Prov: KARIS CLARK MD 01/07/21 Work/School Note: Work Release Form Date Seen in the Emergency Department: Jan 07, 2021 Return to Work: Jan 08, 2021 Restrictions: No Restrictions KARIS CLARK MD Jan 07, 2021 12:03
--- NOTE | 2021-01-07 13:18 | Diagnostic Imaging Report ---
INDICATION: Right-sided chest pain COMPARISON: 08/09/2018 TECHNIQUE: 3 radiographs of the chest and right-sided ribs dated 01/07/2021. FINDINGS: The cardiac silhouette is within normal limits in size. No significant pulmonary vascular congestion. The lungs are clear. No pleural effusion. No pneumothorax. Surgical clips within right upper quadrant in the abdomen. No displaced or healing rib fracture. IMPRESSION: No displaced or healing rib fracture. No significant pleural effusion or pneumothorax. Dictated by: Dictated on workstation # [id number]
[2021-01-07] MEDS ORDERED: CYCL10TA9 PO (13:27)
== END 2021-01-07 13:35 | disposition home or self-care (01) ==
LOC: EDUNIT# 11:47 → ER FS 11:48
DX: R07.81 Pleurodynia (principal); J44.9 Chronic obstructive pulmonary disease, unspecified
CPT/HCPCS: 71101

== ENCOUNTER 2021-08-02 12:14 | Emergency (ER) | payer BC, OTHER ==
[~2021-08-02] VITALS: Ht 165.1 cm; Wt 69.9 kg
[~2021-08-02 12:14] MED LIST changes: +CYCL10TA25 PO
[2021-08-02 12:15] VITALS: BP 132/79
--- NOTE | 2021-08-02 12:29 | ED Chest Pain ---
General Stated Complaint: CHEST PAIN Source: patient Exam Limitations: no limitations History of Present Illness Date Seen by Provider: Aug 02, 2021 Time Seen by Provider: 12:18 Initial Comments 41-year-old female with past medical history of COPD that still smokes coming in as referral from urgent care due to chest pain. Has been constant, pressure- like pain on the right side of her chest since last night. Has some mild shortness of breath with it. At the urgent care had an EKG, chest x-ray, breathing treatment. She said she felt significantly better after the breathing treatment. She is taken full dose aspirin the past 2 days. She denies any cardiac history or prior history of DVT or PE. No recent surgery, no recent long travel, no hemoptysis, no fever, no leg swelling or pain. She says she does have a productive cough more so in the morning. She is otherwise denying any other acute complaints Allergies and Home Medications Allergies Coded Allergies: acetaminophen (Verified Allergy, Unknown, 07/24/18) PT DENIES ALLERGY, CITING, "I CAN TAKE LORCET, I CANNOT TAKE PERCOSET. Uncoded Allergies: DEPROVERA (Allergy, Unknown, 07/24/18) oxycodone (Adverse Reaction, Intermediate, 11/27/12) pt states, "i'm not really allergic to tylenol, i am allergic to percoset. WHEN I TOOK PERCOSET I BECAME VERY ANXIOUS, AND NERVOUS, WAS CLIMBING THE HERNANDEZ, BUT I CAN TAKE LORCET WITH NO PROBLEM, SO IT'S NOT TYLENOL. IT'S OXYCODONE THAT I AM ALLERGIC TO. Patient Home Medication List Home Medication List Reviewed: Yes Cyclobenzaprine HCl (Cyclobenzaprine HCl) 10 Mg Tablet, 10 MG PO Q8H PRN for SPASMS Prescribed by: KARIS CLARK on 01/07/21 0727 Review of Systems Review of Systems Constitutional: No chills, No fever EENTM: No Blurred Vision Respiratory: Cough, Shortness of Air Cardiovascular: Chest Pain Gastrointestinal: Denies Abdominal Pain, Denies Nausea Genitourinary: No Symptoms Reported Musculoskeletal: no symptoms reported Skin: no symptoms reported Psychiatric/Neurological: No Symptoms Reported Endocrine: No Symptoms Reported Hematologic/Lymphatic: No Symptoms Reported All Other Systems Reviewed Negative Unless Noted: Yes Past Qonqnhv-Giblpk-Difsov Hx Patient Social History Tobacco Use?: Yes Tobacco type used: Cigarettes Seasonal Allergies Seasonal Allergies: No Past Medical History Surgery/Hospitalization HX: PSH: Hyst/GB/Appy/Kidney stone surgery x 2/Ureteral stent PMH: Migraines/COPD Surgeries: Yes Respiratory: Yes (ASTHMA A CHILD) Asthma, COPD Cardiac: Yes Palpitations Neurological: Yes Headaches /Migraines 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 Sexually Transmitted Disease: No HIV/AIDS: No Genitourinary: Yes Bladder Infection, Kidney Stones, UTI-Chronic Gastrointestinal: Yes Chronic Diarrhea, Gall Bladder Disease Musculoskeletal: Yes (CHRONIC BILATERAL HIP PAIN ) Chronic Back Pain Endocrine: No HEENT: No Cancer: Yes Cervical, Uterine Psychosocial: Yes (STATES HAS APPROX 2 PANIC ATTACKS PER MONTH) Anxiety, Depression Integumentary: No Blood Disorders: Yes (CHRONIC ANEMIA, PER PATIENT) Adverse Reaction/Blood Tranf: No Family Medical History No Pertinent Family Hx Physical Exam Vital Signs Vital Signs - First Documented 08/02/21 12:15 Temp 36.4 Pulse 94 Resp 31 B/P (MAP) 132/79 (96) Pulse Ox 98 O2 Delivery Room Air Capillary Refill : Height, Weight, BMI Height: 5'4.00" Weight: 150lbs. oz. 68.592371rb; 22.00 BMI Method:Stated General Appearance: No Apparent Distress, WD/WN HEENT: PERRL/EOMI, Normal ENT Inspection, Pharynx Normal Neck: Full Range of Motion, Normal Inspection, Non Tender, Supple Respiratory: Chest Non Tender, Lungs Clear, Normal Breath Sounds, No Accessory Muscle Use, No Respiratory Distress Cardiovascular: Regular Rate, Rhythm, No Edema, Normal Peripheral Pulses Gastrointestinal: Normal Bowel Sounds, Non Tender, Soft; No Distended, No Guarding Extremity: Normal Capillary Refill, Normal Inspection, Normal Range of Motion, Non Tender, No Calf Tenderness, No Pedal Edema Neurologic/Psychiatric: Alert, No Motor/Sensory Deficits, Normal Mood/Affect Skin: Normal Color, Warm/Dry Lymphatic: No Adenopathy Progress/Results/Core Measures Results/Orders Lab Results Laboratory Tests Test 08/02/21 12:25 Range/Units White Blood Count 10.0 4.3-11.0 10^3/uL Red Blood Count 5.06 3.80-5.11 10^6/uL Hemoglobin 15.8 11.5-16.0 g/dL Hematocrit 45 35-52 % Mean Corpuscular Volume 90 80-99 fL Mean Corpuscular Hemoglobin 31 25-34 pg Mean Corpuscular Hemoglobin Concent 35 32-36 g/dL Red Cell Distribution Width 12.5 10.0-14.5 % Platelet Count 315 130-400 10^3/uL Mean Platelet Volume 8.9 L 9.0-12.2 fL Immature Granulocyte % (Auto) 1 % Neutrophils (%) (Auto) 58 42-75 % Lymphocytes (%) (Auto) 32 12-44 % Monocytes (%) (Auto) 8 0-12 % Eosinophils (%) (Auto) 1 0-10 % Basophils (%) (Auto) 1 0-10 % Neutrophils # (Auto) 5.8 1.8-7.8 10^3/uL Lymphocytes # (Auto) 3.2 1.0-4.0 10^3/uL Monocytes # (Auto) 0.8 0.0-1.0 10^3/uL Eosinophils # (Auto) 0.1 0.0-0.3 10^3/uL Basophils # (Auto) 0.1 0.0-0.1 10^3/uL Immature Granulocyte # (Auto) 0.1 0.0-0.1 10^3/uL Prothrombin Time 12.3 12.2-14.7 SEC INR Comment 0.9 0.8-1.4 Activated Partial Thromboplast Time 27 24-35 SEC D-Dimer 0.23 0.00-0.49 UG/ML Sodium Level 140 135-145 MMOL/L Potassium Level 3.5 L 3.6-5.0 MMOL/L Chloride Level 103 98-107 MMOL/L Carbon Dioxide Level 26 21-32 MMOL/L Anion Gap 11 5-14 MMOL/L Blood Urea Nitrogen 9 7-18 MG/DL Creatinine 0.67 0.60-1.30 MG/DL Estimat Glomerular Filtration Rate 114 BUN/Creatinine Ratio 13 Glucose Level 104 70-105 MG/DL Calcium Level 9.9 8.5-10.1 MG/DL Corrected Calcium 8.5-10.1 MG/DL Magnesium Level 1.9 1.6-2.4 MG/DL Total Bilirubin 0.3 0.1-1.0 MG/DL Aspartate Amino Transf (AST/SGOT) 19 5-34 U/L Alanine Aminotransferase (ALT/SGPT) 39 0-55 U/L Alkaline Phosphatase 82 40-136 U/L Troponin I < 0.30 <0.30 NG/ML Pro-B-Type Natriuretic Peptide 128.5 H <75.0 PG/ML Total Protein 7.1 6.4-8.2 GM/DL Albumin 4.6 H 3.2-4.5 GM/DL My Orders Orders - EDNA TILLEY MD Cbc With Automated Diff (08/02/21 12:25) Magnesium (08/02/21 12:25) Ekg Tracing (08/02/21 12:25) Comprehensive Metabolic Panel (08/02/21 12:25) Protime With Inr (08/02/21 12:25) Partial Thromboplastin Time (08/02/21 12:25) O2 (08/02/21 12:25) Monitor-Rhythm Ecg Trace Only (08/02/21 12:25) Ed Iv/Invasive Line Start (08/02/21 12:25) Fibrin Degradation Products (08/02/21 12:25) Troponin I Fs (08/02/21 12:25) Probnp Fs (08/02/21 12:25) Antacid Suspension (Mylanta Suspension (08/02/21 12:30) Outside Films For Comparison (08/02/21 ) Medications Given in ED Current Medications Medications Dose Ordered Sig/Jorge Route Start Time Stop Time Status Last Admin Dose Admin Al Hydrox/Mg Hydrox/Simethicone 30 ml ONCE ONCE PO 08/02/21 12:30 08/02/21 12:31 DC 08/02/21 12:46 30 ML Vital Signs/I&O 08/02/21 12:15 Temp 36.4 Pulse 94 Resp 31 B/P (MAP) 132/79 (96) Pulse Ox 98 O2 Delivery Room Air Progress Progress Note : Progress Note 41-year-old female with above history coming in due to chest tightness and shortness of breath. ABCs were intact and vitals were stable on presentation. Physical exam with some wheezing which improved after she had received the DuoNeb earlier today. She says a lot of her symptoms in fact improved after the DuoNeb, and she does not have an inhaler at home. EKG without ischemic changes. An IV was placed and basic labs including cardiac biomarkers ordered. Troponin and D-dimer normal. She is otherwise low risk for a PE, and given the normal D- dimer, further work-up not necessary at this time. I reviewed the chest x-ray done at the urgent care which did not show any significant acute abnormality including no pneumonia or pneumothorax. Given the more productive cough with her COPD history, we will treat this like a COPD exacerbation. Vitals are stable, and I believe she is appropriate for outpatient management. She was sent home with strict return precautions Initial ECG Impression Date: Aug 02, 2021 Initial ECG Impression Time: 12:20 Initial ECG Rate: 87 Initial ECG Rhythm: Normal Sinus Comment Narrow QRS, normal axis, no significant ST changes or T wave abnormalities Departure Impression Primary Impression: COPD exacerbation Additional Impression: Chest tightness Disposition: HOME, SELF-CARE Condition: Stable Departure-Patient Inst. Decision time for Depature: 13:32 Referrals: [facility] [place] (PCP/Family) Primary Care Physician ZARI KENDRICK JR, MD Patient Instructions: COPD Exacerbation, Adult ED Add. Discharge Instructions: You were seen in the emergency department for your chest tightness and shortness of breath. Your work-up is reassuring and you do not have any evidence of heart attack or blood clot. This is likely related to your COPD. We will start you on some antibiotics, steroids, and an inhaler. I do want you to call Dr. Ernesto harden, the health and wellness director that comes to [place] once a week, otherwise he is in [place]. Please follow-up with him for further evaluation to be sure that there is nothing significant going on with your heart, as he can do test that we are unable to do. Scripts Albuterol Sulfate (VENTOLIN HFA) 1 Puff Puff 2 PUFF INH Q4H PRN for DYSPNEA for 30 Days, #1 EA 1 PUFF = 90 MCG Prov: EDNA TILLEY MD 08/02/21 Methylprednisolone (Methylprednisolone Dose Pack) 4 Mg Tab.ds.pk 4 MG PO UD for 6 Days, #21 PKG PER DOSE PACK INSTRUCTIONS Prov: EDNA TILLEY MD 08/02/21 Doxycycline Hyclate (Doxycycline Hyclate) 100 Mg Tablet 100 MG PO BID for 7 Days, #14 TAB 0 Refills Prov: EDNA TILLEY MD 08/02/21 Work/School Note: Work Release Form Date Seen in the Emergency Department: Aug 02, 2021 Return to Work: Aug 03, 2021 Restrictions: No Restrictions EDNA TILLEY MD Aug 02, 2021 12:29
[2021-08-02] MEDS ORDERED: ANTACID SUSP 30 ML UDC (MYLANTA) PO ONE (12:30)
[2021-08-02 12:42] LABS: BASOPHILS # (AUTO) 0.1 10^3/uL (0.0-0.1); BASOPHILS % (AUTO) 1 % (0-10); EOSINOPHILS # (AUTO) 0.1 10^3/uL (0.0-0.3); EOSINOPHILS % (AUTO) 1 % (0-10); HEMATOCRIT 45 % (35-52); HEMOGLOBIN 15.8 g/dL (11.5-16.0); LYMPHOCYTES # (AUTO) 3.2 10^3/uL (1.0-4.0); LYMPHOCYTES % (AUTO) 32 % (12-44); MEAN CORPUSCULAR HEMOGLOBIN 31 pg (25-34); MEAN CORPUSCULAR HGB CONC 35 g/dL (32-36); MEAN CORPUSCULAR VOLUME 90 fL (80-99); MEAN PLATELET VOLUME 8.9 fL (9.0-12.2); MONOCYTES # (AUTO) 0.8 10^3/uL (0.0-1.0); MONOCYTES % (AUTO) 8 % (0-12); NEUTROPHILS # (AUTO) 5.8 10^3/uL (1.8-7.8); NEUTROPHILS % (AUTO) 58 % (42-75); PLATELET COUNT 315 10^3/uL (130-400)
[2021-08-02 13:08] LABS: BUN/CREATININE RATIO 13; CALCIUM 9.9 MG/DL (8.5-10.1); CARBON DIOXIDE 26 MMOL/L (21-32); CHLORIDE 103 MMOL/L (98-107); CREATININE SERUM 0.67 MG/DL (0.60-1.30); GFR ESTIMATED 114; GLUCOSE 104 MG/DL (70-105); MAGNESIUM 1.9 MG/DL (1.6-2.4); POTASSIUM 3.5 MMOL/L (3.6-5.0); SODIUM 140 MMOL/L (135-145)
[2021-08-02 13:09] LABS: ALANINE AMINOTRANSFERASE 39 U/L (0-55); ALBUMIN 4.6 GM/DL (3.2-4.5); ALKALINE PHOSPHATASE 82 U/L (40-136); BILIRUBIN,TOTAL 0.3 MG/DL (0.1-1.0); TOTAL PROTEIN 7.1 GM/DL (6.4-8.2)
[2021-08-02 13:12] LABS: INR 0.9 (0.8-1.4); PROTHROMBIN TIME PATIENT 12.3 SEC (12.2-14.7)
[2021-08-02] MEDS ORDERED: METH4TAB10 PO (13:34)
[2021-08-02] MEDS ORDERED: RT-ALBUINH INH (13:34)
[2021-08-02] MEDS ORDERED: DOXY100T2 PO (13:34)
== END 2021-08-02 13:40 | disposition home or self-care (01) ==
LOC: EDUNIT# 12:14 → ER FS 12:15
DX: J44.1 Chronic obstructive pulmonary disease with (acute) exacerbation (principal); Z72.0 Tobacco use
CPT/HCPCS: 36415; 80053; 83735; 83880; 84484; 85025; 85379; 85610; 85730; 93005; 93041